=== PATIENT | female | born 1975 | race Caucasian/White ===

== ENCOUNTER 2022-08-21 11:30 | Day surgery (SDC) | payer OTHER ==
[2022-08-21] MEDS: BUPIVACAINE 0.25% PF 10 ML VIAL ONE ×2 (12:35→13:22)
[2022-08-21] MEDS: LIDOCAINE 1% 20 ML MDV ONE ×2 (12:36→13:22)
[2022-08-21] MEDS: TRIAMCINOLONE ACETON 40 MG/ML VIAL ONE ×2 (12:37→13:25)
[2022-08-21] MEDS: NA CHLORIDE 0.9% 1,000 ML ONE ×2 (12:38→13:10)
[2022-08-21] MEDS ORDERED: propofoL 200 MG/20 ML VIAL IV ONE (13:04)
[2022-08-21] MEDS ORDERED: LIDOCAINE 2% MPF 5 ML VIAL ONE (13:05)
[2022-08-21] MEDS ORDERED: MIDAZOLAM HCL 2 MG/2 ML INJ ONE (13:05)
[2022-08-21 13:12] VITALS: O2SAT 100
[2022-08-21 13:58] VITALS: TEMP 98.3
[2022-08-21 14:14] VITALS: BP 121/81
--- NOTE | 2022-08-21 14:33 | RAD REPORT ---
EXAM DESCRIPTION: RAD - Fluoroscopy <1 Hour - 08/21/2022 2:24 pm CLINICAL HISTORY: SACROILITIS INJECTION COMPARISON: No comparisons FINDINGS/IMPRESSION: Two intra procedure fluoroscopic images were submitted showing bilateral sacroi liac joint injections. Contrast can be seen at the joint. Fluoro time: 0.2 minutes Cumulative dose: 2.93 mGy
== END 2022-08-21 14:15 | disposition home or self-care (01) ==
LOC: OR 11:30
PROVIDERS: ATTEND Pain Medicine Interventional Pain Medicine
PROC: B01BZZZ Fluoroscopy of Spinal Cord (ICD-10-PCS; 2022-08-21)
PROC: 3E0R33Z Introduction of Anti-inflammatory into Spinal Canal, Percutaneous Approach (ICD-10-PCS; principal; 2022-08-21 13:00)
DX: M54.50 Low back pain, unspecified (principal); M46.1 Sacroiliitis, not elsewhere classified; E03.9 Hypothyroidism, unspecified; M06.9 Rheumatoid arthritis, unspecified
CPT/HCPCS: 82947; 76000; 62323; J2704; J3301; J2001; J2250; J7030; Q9967